=== PATIENT | male | born 1965 | race Caucasian/White ===

== ENCOUNTER 2019-06-05 18:26 | Inpatient (IN) | payer BC, OTHER ==
[~2019-06-05] VITALS: Ht 162.6 cm; Wt 68.5 kg
[2019-06-05] MEDS ORDERED: PANTOPRAZOLE 40 MG VIAL ONE (18:45)
[2019-06-05] MEDS ORDERED: ONDANSETRON HCL/PF 4 MG/2 ML VIAL ONE (18:46)
--- NOTE | 2019-06-05 18:50 | NUR ---
Patient camein to ther er c/o abnormal lab, on room air, breathing evenly and unlabored. connected to the monitor and pulse ox, kept comfortable, will continue to monitor accordingly. Noted pale skin color.
--- NOTE | 2019-06-05 18:51 | NUR ---
marla at bedside for x-ray
[2019-06-05 18:52] LABS: BASOPHILS % (AUTO) 0.5 % (0.0-2.0); EOSINOPHILS % (AUTO) 0.4 % (0.0-6.0); LYMPHOCYTES # (AUTO) 1.5 /CMM (0.8-4.8); LYMPHOCYTES % (AUTO) 21.1 % (20.0-44.0); MEAN CORPUSCULAR HGB CONC 35 g/dl (31.0-36.0); MEAN CORPUSCULAR VOLUME 92 fL (80-96); MONOCYTES # (AUTO) 0.7 /CMM (0.1-1.30); MONOCYTES % (AUTO) 9.8 % (2.0-12.0); NEUTROPHILS # (AUTO) 4.8 /CMM (1.8-8.9); NEUTROPHILS % (AUTO) 68.2 % (43.0-81.0); PLATELET COUNT (AUTO) 272 /CMM (150-450); WHITE BLOOD COUNT (AUTO) 7.1 K/uL (4.3-11.0)
[2019-06-05] MEDS ORDERED: ONDANSETRON HCL/PF 4 MG/2 ML VIAL IVP ONE (19:00)
[2019-06-05] MEDS ORDERED: PANTOPRAZOLE 40 MG VIAL IV ONE (19:00)
[2019-06-05] MEDS ORDERED: IV NS 0.9% 1,000 ML BAG IV ONE (19:00)
[2019-06-05 19:05] LABS: ALBUMIN 3.8 g/dL (3.4-5.0); BILIRUBIN,TOTAL 0.2 mg/dL (0.2-1.0); CREATININE 1.1 mg/dL (0.6-1.3); POTASSIUM 3.7 mmol/L (3.5-5.1); TOTAL PROTEIN, SERUM 6.7 g/dL (6.4-8.2)
[2019-06-05 19:17] LABS: HEMATOCRIT 20 % (39-51)
--- NOTE | 2019-06-05 19:26 | NUR ---
DR. REEVES AT THE BED SIDE
--- NOTE | 2019-06-05 19:31 | NUR ---
DR. REEVES ON THE PHONE WITH GI NATURAL RESOURCES ENGINEER, DR. VALDOVINOS
--- NOTE | 2019-06-05 19:44 | NUR ---
PER PT HE IS NOT TAKING ANY REGULAR MEDICATION AT HOME.
[2019-06-05 20:11] LABS: CALCIUM, SERUM 8.9 mg/dL (8.5-10.1)
--- NOTE | 2019-06-05 20:50 | NUR ---
BLOOD TRANSFUSION STARTED W/ TWO RNs WITHNESSED . PT REMAINED ON CLOSE MONITORING . VSS AT THIS TIME .
--- NOTE | 2019-06-05 20:58 | NUR ---
DR. REEVES ON THE PHONE WITH DILIP FISH MD
--- NOTE | 2019-06-05 21:01 | NUR ---
PT IS CLEARED TO BE ADMITTED HERE, PER DR. REEVES
--- NOTE | 2019-06-05 21:01 | NUR ---
PAGED DR. HENRIQUEZ
--- NOTE | 2019-06-05 21:02 | NUR ---
ER DOC ON PHONE WITH DR. HENRIQUEZ
--- NOTE | 2019-06-05 21:05 | NUR ---
PT REMAINED ON ONGOING BLOOD TRANSFUSION W/ NNO COMPLAINT. NO S/S OF A/R TO THE TRANSFUSION NOTED. -CP. -SOB. - FLANK PAIN. VSS. WILL CONT TO MONITOR,
--- NOTE | 2019-06-05 21:07 | NUR ---
CALLED FOR TELE BED
--- NOTE | 2019-06-05 22:01 | NUR ---
REPORT GIVEN TO GERALD ON THIRD FLOOR
--- NOTE | 2019-06-05 22:22 | NUR ---
PT WAS TRANSFERRED TO THE THIRD FLOOR UNDER ACLS
[2019-06-05 22:30] VITALS: BP 133/69
--- NOTE | 2019-06-05 22:30 | NUR ---
STONE PROCESSING MACHINE OPERATOR NOTE PT ARRIVED TO FLOOR VIA GURNEY ACCOMPANIED BY ER STAFF. PT ABLE TO WALK WITH STABLE GAIT FROM GURNEY TO BED, USED RESTROOM. NOTED WITH ONGOING BLOOD TRANSFUSION, TOLERATING WELL. ONCOMING VITALS STABLE. PT IN STABLE CONDITION A/O X4, NO SIGNS OF SOB OR DISTRESS, NO C/O PAIN OR N/V. IV IN LAC IN PLACE. ALL CURRENT NEEDS ATTENDED TO. SAFETY MEASURES IN PLACE. ALL BELONGINGS ACCOUNTED AND SIGNED FOR. PT SKIN INTACT. ARRIVED WITH ORDERS FROM DR. HENRIQUEZ. WILL CARRY OUT. WILL CONT. TO MONITOR.
--- NOTE | 2019-06-05 22:45 | NUR ---
CONTINUOUS MINING MACHINE LODE MINER NOTE PT BLOOD TRANSFUSION COMPLETED, VSS, TOLERATING WELL.
[2019-06-05] MEDS ORDERED: ZOLPIDEM TARTRATE 5 MG TABLET PO PRN (23:00)
[2019-06-05] MEDS ORDERED: IV D5/ 0.9% NACL 1,000 ML IV PRN (23:00)
[2019-06-05] MEDS ORDERED: ONDANSETRON HCL/PF 4 MG/2 ML VIAL IV PRN (23:00)
[2019-06-05] MEDS ORDERED: MORPHINE SULFATE INJ 2 MG/ML DISP.SYRIN IV PRN (23:00)
[2019-06-06] VITALS (8 sets, daily range): BP systolic 114–128; BP diastolic 69–77
[2019-06-06 00:24] LABS: HEMOGLOBIN 7.5 g/dL (13.5-17.5)
--- NOTE | 2019-06-06 00:45 | NUR ---
CAMPUS COORDINATOR NOTE PT NOTED WITH HGB 7.5 PER MD ORDER, TRANSFUSE 1 UNIT PRBCs, WILL CARRY ORDER OUT.
--- NOTE | 2019-06-06 01:34 | NUR ---
HOTEL FRONT OFFICE MANAGER NOTE BEGAN 1 UNIT PRBCs, VSS, PT TOLERATING WELL. WILL CONT. TO MONITOR CLOSELY.
--- NOTE | 2019-06-06 01:49 | NUR ---
CASTINGS TRIMMER NOTE POST 15 MIN VS STABLE, PT TOLERATING WELL, INCREASE INFUSION RATE.
--- NOTE | 2019-06-06 03:56 | NUR ---
HEALTH INFORMATION MANAGER NOTE TRANSFUSION FINISHED, PT REMAINS IN STABLE CONDITION, VSS.
--- NOTE | 2019-06-06 06:13 | NUR ---
FORGEMAN HELPER NOTE PT REMAINS IN STABLE CONDITION A/O X4, NO SIGNS OF SOB OR DISTRESS, NO C/O PAIN OR N/V. IV IN LAC #[address] WITH IVF INFUSING. NPO EXCEPT MEDS, PT. AWARE. ALL CURRENT NEEDS ATTENDED TO. SAFETY MEASURES IN PLACE. WILL CONT. TO MONITOR AND ENDORSE TO NEXT SHIFT FOR THERESA.
[2019-06-06 06:39] LABS: BASOPHILS % (AUTO) 0.6 % (0.0-2.0); HEMATOCRIT 26 % (39-51); HEMOGLOBIN 8.9 g/dL (13.5-17.5); LYMPHOCYTES # (AUTO) 1.2 /CMM (0.8-4.8); LYMPHOCYTES % (AUTO) 21.7 % (20.0-44.0); MEAN CORPUSCULAR HGB CONC 34 g/dl (31.0-36.0); MEAN CORPUSCULAR VOLUME 90 fL (80-96); MONOCYTES # (AUTO) 0.6 /CMM (0.1-1.30); MONOCYTES % (AUTO) 10.5 % (2.0-12.0); NEUTROPHILS # (AUTO) 3.8 /CMM (1.8-8.9); NEUTROPHILS % (AUTO) 66.2 % (43.0-81.0); PLATELET COUNT (AUTO) 212 /CMM (150-450); WHITE BLOOD COUNT (AUTO) 5.7 K/uL (4.3-11.0)
[2019-06-06 06:58] LABS: CALCIUM, SERUM 8.4 mg/dL (8.5-10.1); POTASSIUM 3.6 mmol/L (3.5-5.1)
--- NOTE | 2019-06-06 08:00 | NUR ---
ADVERTISING AGENT OPENING NOTE RECEIVED PT IN BED, AWAKE, ALERT AND ORIENTED X4. PLEASANT. NO CARDIAC OR RESP DISTRESS NOTED. NO COMPLAINTS OF PAIN OR DISCOMFORT. NO SOB NOTED. ON ROOM AIR SATURATING WELL. PT IS AMBULATORY. PT USED RESTROOM. HGB THIS AM WAS 8.7. IV IN LAC IN PLACE. INTACT AND PATENT. FLUSHING WELL. ALL CURRENT NEEDS ATTENDED TO. SAFETY MEASURES IN PLACE. BED LOCKED AND IN LOW POSITION. SIDE RAILS UP X2. WILL CONT. TO MONITOR.
[2019-06-06] MEDS ORDERED: PANTOPRAZOLE 40 MG VIAL IV SCH (09:00)
--- NOTE | 2019-06-06 09:15 | NUR ---
DR GIRON CALLED DR RUDOLPH CALLED. ORDERED TO PUT PT ON CLEAR LIQUID DIET. NPO AFTER MIDNIGHT TONIGHT. THEN PT WILL HAVE ENDOSCOPY IN AM.
[2019-06-06] MEDS ORDERED: SOD FERRIC GLUC 125 MG in IV NS 0.9% 100 ML IV SCH (14:00)
--- NOTE | 2019-06-06 15:00 | NUR ---
REPORTTO [facility] REPORT GIVEN TO JACE ESPINOZA FROM [facility].
--- NOTE | 2019-06-06 15:30 | NUR ---
D/C TO [facility] PT D/C TO [facility] HOSPT. IN STABLE CONDITION. REPORT GIVEN TO SHOBHA ESPINOZA FROM [facility]. PT IN STABLE CONDITION. VS STABLE. NSR. IV SITE KEPT ON L AC. FLUSHING WELL.. NO S/S OF INFECTION OR INFILTRATION NOTED. INVENTORY COMPLETED. PT WAS VERY THANKFUL FOR ALL SERVICES THE HOSPITAL PROVIDED.
== END 2019-06-06 15:30 | disposition short-term general hospital (02) | DRG 378 ==
LOC: ER 18:26 → TELE 22:02
PROVIDERS: ADMIT Internal Medicine; ATTEND Internal Medicine
PROC: 30233N1 Transfusion of Nonautologous Red Blood Cells into Peripheral Vein, Percutaneous Approach (ICD-10-PCS; principal; 2019-06-05)
DX: K92.2 Gastrointestinal hemorrhage, unspecified (principal); D62 Acute posthemorrhagic anemia; K80.20 Calculus of gallbladder without cholecystitis without obstruction
CPT/HCPCS: 36415; 71045-TC; 80048-TC; 80076-TC; 83690-TC; 85025-TC; 85027-TC; 85730-TC; 86850-TC; 86921-TC; 87081-TC; C9113; G0378; J2405; J2916; J7030; J7040; J7042; J7050; P9016-BL